=== PATIENT | male | born 1985 | race Caucasian/White ===

== ENCOUNTER 2017-06-17 15:58 | Emergency (ER) | payer OTHER ==
[2017-06-17] MEDS: ACETAMINOPHEN 325 MG TAB PO (16:42)
[2017-06-17] MEDS: DIPHTH/TET/ACEL PERTUSS (ADULT) 0.5 ML VIAL IM* (17:15)
== END 2017-06-17 18:20 | disposition home or self-care (01) ==
LOC: FTE 15:58
DX: S00.212A Abrasion of left eyelid and periocular area, initial encounter (principal); S09.90XA Unspecified injury of head, initial encounter; R51 Headache; V89.2XXA Person injured in unspecified motor-vehicle accident, traffic, initial encounter; Z23 Encounter for immunization
CPT/HCPCS: 70450; 72125; 90471; 90715; 99285-25